=== PATIENT | male | born 1980 ===

== ENCOUNTER 2017-01-28 14:00 | Emergency (ER) | payer OTHER | END 2017-01-28 15:38 | disposition left against medical advice (07) | LOC: UCEAST 14:00 | DX: M79.606 Pain in leg, unspecified (principal); Z53.21 Procedure and treatment not carried out due to patient leaving prior to being seen by health care provider ==

== ENCOUNTER 2017-01-29 13:56 | Emergency (ER) | payer BC, OTHER ==
[2017-01-29 14:25] VITALS: BP 98/59
--- NOTE | 2017-01-29 17:35 | UC ---
Cori Braden Erika, scribed for Nicki Liao DO on 01/29/17 at 1530 . Hip/Pelvis Pain - HPI Summary HPI Summary: Patient is a 36-year-old male presenting to [facility] with a CC of left posterior hip and buttocks pain. He denies trauma. Patient reports that 3 weeks ago, he noticed an intermittent burning sensation in the left lower back and left upper hip area, which was present every 15 minutes. Over the next few days, he noted increased and more constant pain in the same area. Now, it has gradually radiated down the posterior upper calf. Patient reports pain is worst when he stands up from a seated position, and pain becomes a sharp, shooting pain. Pain is partially alleviated by activity. Patient also notes tingling around the left hip. Pt denies redness or swelling to the leg. He denies any other symptoms , including fever, chills, diaphoresis, headache, chest pain, SOB, cough, nausea , vomiting, abdominal pain, rash, and numbness. Patient does report he has to drive an hour to work each way. He denies PMHx. FHx HTN. Patient does not smoke. - History Of Current Complaint Chief Complaint: UCLowerExtremity Stated Complaint: LEG PAIN Time Seen by Provider: 01/29/17 14:40 Hx Obtained From: Patient Onset/Duration: Gradual Onset, Lasting Weeks - 3 weeks, Still Present Timing: Constant Severity Initially: Mild Severity Currently: Moderate Pain Intensity: 5 Pain Scale Used: 0-10 Numeric Location: Discrete At: - LLE Character Of Pain: Sharp, Burning Aggravating Factor(s): Other - standing from seated position Alleviating Factor(s): Other - increased activity Associated Signs And Symptoms: Negative: Swelling, Redness, Bruising, Abdominal Pain - Allergies/Home Medications Allergies/Adverse Reactions: Allergies Allergy/AdvReac Type Severity Reaction Status Date / Time No Known Allergies Allergy Verified 01/29/17 14:25 Home Medications: Home Medications Naproxen Sodium [Naproxen Sodium 220 mg] 220 mg PO 01/29/17 [History] PMH/Surg Hx/FS Hx/Imm Hx Endocrine History Of: Denies: Diabetes Cardiovascular History Of: Denies: Hypertension - Surgical History Surgical History: None - Family History Known Family History: Positive: Hypertension - Social History Occupation: Employed Full-time Lives: With Family Alcohol Use: Weekly Substance Use Type: None Smoking Status (MU): Never Smoked Tobacco Review of Systems Constitutional: Negative Skin: Negative Eyes: Negative ENT: Negative Respiratory: Negative Cardiovascular: Negative Gastrointestinal: Negative Genitourinary: Negative Motor: Negative Neurovascular: Negative Musculoskeletal: Myalgia - Left hip/buttocks pain, radiating down LLE Neurological: Negative Psychological: Negative All Other Systems Reviewed And Are Negative: Yes Physical Exam Triage Information Reviewed: Yes Appearance: Well-Appearing, No Pain Distress, Well-Nourished Vital Signs: Initial Vital Signs Temp 98.2 F 01/29/17 14:20 Pulse 63 01/29/17 14:20 Resp 18 01/29/17 14:20 BP 98/59 01/29/17 14:20 Pulse Ox 97 01/29/17 14:20 Vital Signs Reviewed: Yes Eyes: Positive: Conjunctiva Clear. Negative: Discharge ENT: Positive: Hearing grossly normal. Negative: Muffled/hoarse voice Neck: Positive: Supple, Nontender Respiratory: Positive: Lungs clear, Normal breath sounds, No respiratory distress, No accessory muscle use Cardiovascular: Positive: RRR, No Murmur Musculoskeletal Exam: Other - Tender point over the left piriformis that reproduces pain down the left leg. Normal inspection of the lumbar spine. No paraspinal tenderness noted over the lumbar spine. Strength, sensation, reflexes , ROM intact bilaterally Musculoskeletal: Positive: Strength Intact, ROM Intact, No Edema Neurological: Positive: Alert, Muscle Tone Normal Psychological: Positive: Normal Response To Family, Age Appropriate Behavior Skin Exam: Other - Warm, dry, normal color Hip Injury Course/Dx - Differential Dx/Diagnosis Differential Diagnosis/HQI/PQRI: Arthritis, Bursitis, Sciatica, Sprain, Strain Provider Diagnoses: 1. Piriformis syndrome Discharge - Discharge Plan Condition: Stable Disposition: HOME Prescriptions: Cyclobenzaprine TAB* [Flexeril TAB*] 10 mg PO TID PRN #30 tab PRN Reason: Pain Patient Education Materials: Piriformis Syndrome (ED), Sciatica (ED) Referrals: No Primary Care Phys,NOPCP [Primary Care Provider] - Additional Instructions: MUSCLE RELAXERS: Muscle relaxing medications are usually prescribed for acute muscle spasm or injury to the neck and back. They are often combined with antiinflammatory pain medication for increased relief. You may stop the muscle relaxer when the pain and stiffness have improved. Start the medication again if spasms recur. Muscle relaxers may cause drowsiness, especially with the first dose. Do not operate machinery or drive while under the effects of the medication. Most muscle relaxers last up to 24 hours. Do not combine the medication with alcohol. ANTI-INFLAMMATORY MEDICATION: You have received a prescription for an antiinflammatory agent. This is an excellent, safe drug for pain control. In addition, it has potent antiinflammatory effects which are beneficial, especially in the treatment of injuries, arthritis, or tendonitis. It's best to take this medicine with food. Persons with ulcer disease or allergy to aspirin should notify their physician of this before taking this drug. Take the medication exactly as prescribed. Don't take additional doses unless instructed to do so by your doctor. If you develop wheezing, shortness of breath, hives, faintness, stomach pain, vomiting, or dark black stools, return for re-evaluation at once. YOU WOULD LIKELY BENEFIT FROM OSTEOPATHIC TREATMENT. WE RECOMMEND THAT YOU FIND AN OSTEOPATHIC PHYSICIAN IN YOUR AREA WHO FOCUSES EXCLUSIVELY ON OSTEOPATHIC MANIPULATIVE MEDICINE WITH EXPERTISE IN MYOFACIAL, LYMPHATIC, VISCERAL AND INTEROSSEOUS WORK. FOLLOW-UP CARE: You should establish with a private physician for follow-up care in 1-2 weeks. If you are unable to get a timely appointment, or if you are worsening, call us or return for re-evaluation. An additional resource available to assist in finding the appropriate physician for your health care needs is the [facility]. You may contact them by calling [phone]. The documentation as recorded by the Cori campos Erika accurately reflects the service I personally performed and the decisions made by , Nicki Liao DO.
== END 2017-01-29 15:48 | disposition home or self-care (01) ==
LOC: UCEAST 13:56
DX: M62.838 Other muscle spasm (principal)
CPT/HCPCS: 99212; G0463